=== PATIENT | female | born 1935 | race Caucasian/White ===

== ENCOUNTER 2018-12-07 22:49 | Emergency (ER) | payer MEDICARE, SELFPAY ==
[2018-12-07 22:51] VITALS: BP 148/92; PULSE 80; RESP 18; TEMP 36.6; O2SAT 91; BMI 26.8
--- NOTE | 2018-12-07 23:32 | ED.VISSUMM ---
- ER Visit Summary Date of Service: 12/07/18 Chief Complaint: Allergic reaction History of Present Illness: The patient is a 83 F presenting from a hotel with concern for an allergic reaction. She states that she took a shower in the hotel and used the hotel soap and put on hotel lotion afterwards. She immediately felt a burning itching sensation as she put on the lotion. She rinsed to back off with hotel soap but then felt like her entire body was itching. She developed a transient rash on her arms and legs but she thinks it was more from the itching and scratching. She felt a burning sensation all over her entire body. No chest pain or shortness of breath. It has now completely resolved and she feels normal. She has no complaints now. She does not want to be evaluated. She denies previous similar symptoms. She denies any medication changes or other abnormal ingestions. Physical Examination: Those are within normal limits. Pulse oximetry in the room is 95% on the monitor on room air. Heart rate is 75. She is not in distress. She is sitting up and speaking in full sentences. She has no complaints. No rash anywhere. Lungs are clear. No stridor. Normal neurologic exam. She can walk without difficulty. Test Results: None performed Emergency Department Course and Treatment: She looks well. She does not want any testing. I offered to perform an EKG and blood tests since she is not absolutely certain if this was an allergic reaction. She does not want any testing done and wants to leave. She and her both state that she is completely at baseline and they are absolutely confident that this was from the lotion and hotel soap. Her symptoms have completely resolved. She walked without difficulty in the emergency department and her pulse ox remained in the high 90s. I did not feel it was necessary to make her sign out AGAINST MEDICAL ADVICE and she would prefer to be discharged. She has no complaints at all and assures me that she will come back tonight if she has any symptoms. Treatment Plan: Follow-up with her doctor as needed Disposition: Home stable Impression: She will encounter allergic reaction This note was generated with [employer] software. It may contain incorrect words, spelling, and punctuation that were not noted in review of the chart prior to signing ED Disposition - Plan for ED Patient: Instructions: ED Allergic Reaction Local Other Referrals: NOT,DEFINED [Primary Care Provider] -
[2018-12-07 23:42] VITALS: PULSE 75; RESP 16; O2SAT 95
== END 2018-12-07 23:43 | disposition home or self-care (01) ==
LOC: ED 23:37
PROVIDERS: Emergency Provider Emergency Medicine
DX: T78.40XA Allergy, unspecified, initial encounter (principal); X58.XXXA Exposure to other specified factors, initial encounter
CPT/HCPCS: 99282